=== PATIENT | female | born 1985 | race Caucasian/White ===

== ENCOUNTER 2019-10-03 06:00 | Inpatient (IN) | payer BC ==
[~2019-10-03 06:00] MED LIST: Lactated Ringers 1,000 ML IV SCH; Scopolamine 1.5 MG Transdermal Patch TOP ONE; Sodium Chloride 0.9% 10 ML Syringe FLUSH PRN; Tranexamic Acid 1,000 MG in Sodium Chloride 0.9% 100 ML IV PRN
[2019-10-03] MEDS ORDERED: ceFAZolin 2 GM in Premix Bag 1 BAG IV ONE (06:27)
[2019-10-03] MEDS ORDERED: Citric Acid/Sodium Citrate Solution 30 ML Cup PO ONE (06:27)
[2019-10-03] MEDS ORDERED: Oxytocin/Normal Saline 30 UNIT/500 ML BAG IV SCH (06:30)
[2019-10-03] MEDS ORDERED: diphenhydrAMINE 50 MG/ML SDV IVPUSH PRN (08:45)
[2019-10-03] MEDS ORDERED: ePHEDrine 50 MG/ML SDV IVPUSH PRN (08:45)
[2019-10-03] MEDS ORDERED: Acetaminophen 325 MG Tab PO PRN (08:45)
[2019-10-03] MEDS ORDERED: Carboprost Tromethamine 250 MCG/1 ML Amp IM PRN (08:45)
[2019-10-03] MEDS ORDERED: Methylergonovine 0.2 MG/1 ML Amp IM PRN (08:45)
[2019-10-03] MEDS ORDERED: Tranexamic Acid 1,000 MG in Sodium Chloride 0.9% 100 ML IV PRN (08:45)
[2019-10-03] MEDS ORDERED: Naloxone 2 MG/2 ML Syringe IVPUSH PRN (08:45)
[2019-10-03] MEDS ORDERED: Ondansetron 4 MG/2 ML SDV IVPUSH PRN (08:45)
[2019-10-03] MEDS ORDERED: Misoprostol 400 MCG (4 X 100 MCG TAB) RECTAL PRN (08:45)
[2019-10-03] MEDS ORDERED: fentaNYL 100 MCG/2 ML SDV IVPUSH PRN (09:02)
[2019-10-03] MEDS: Lactated Ringers 1,000 ML IV SCH ×3 (09:54→19:44)
[2019-10-03] MEDS ORDERED: Oxytocin/Normal Saline 30 UNIT/500 ML BAG IV ONE (10:07)
[2019-10-03] MEDS ORDERED: Lactated Ringers 1,000 ML IV ONE (10:08)
[2019-10-03] MEDS ORDERED: Dexamethasone 4 MG/ML SDV IV ONE (10:08)
[2019-10-03] MEDS ORDERED: Ketorolac 30 MG/ML SDV IVPUSH ONE (10:08)
[2019-10-03] MEDS ORDERED: Ondansetron 4 MG/2 ML SDV IV ONE (10:08)
[2019-10-03] MEDS ORDERED: Famotidine 20 MG/2 ML SDV IV ONE (10:08)
[2019-10-03] MEDS ORDERED: ePHEDrine 50 MG/ML SDV IV ONE (10:08)
[2019-10-03] MEDS: Simethicone 80 MG Tab.Chew PO SCH ×4 (11:42→20:42)
[2019-10-03] MEDS: Prenatal Multivitamin with Calcium/Folic Acid/Iron Tab PO SCH (11:42)
[2019-10-03] MEDS: Ketorolac 30 MG/ML SDV IVPUSH SCH ×2 (14:12→20:37)
[2019-10-03] MEDS: Acetaminophen/oxyCODONE 325-5 MG Tab PO PRN ×3 (15:41→23:29)
--- NOTE | 2019-10-03 15:52 | OR ---
DATE: 10/03/2019 PREOPERATIVE DIAGNOSES: 1. A 34-year-old, G4, P2-0-1-2, at 39 weeks' gestation. 2. Candidate for elective repeat section. 3. History of gestational hypertension with intermittent borderline readings, but no evidence of preeclampsia with this . 4. Rubella immune. 5. A positive blood type. 6. Group B streptococcus negative. POSTOPERATIVE DIAGNOSES: 1. A 34-year-old, 4, now para 3-0-1-3. 2. Elective repeat without complication, delivering a viable male infant at 8:04, on 10/03/2019. weight is 7 pounds 14 ounces/3575 g. 3. History of gestational hypertension with intermittent borderline readings, but no evidence of preeclampsia with this . 4. Rubella immune. 5. A positive blood type. 6. Group B streptococcus negative. PROCEDURE: Repeat elective low-transverse section. ESTIMATED BLOOD LOSS: 500 mL. FINDINGS: This delightful 34-year-old, G4, P2-0-1-2, presented at 39 weeks' gestation for her elective repeat section as scheduled. Nonstress test was reactive. She met with Anesthesia and precautions were taken to avoid nausea and reactions that she has had in the past. Please see their notes for details. DESCRIPTION OF PROCEDURE: IV was placed, and she received 2 g of Ancef preop antibiotics. Underwent spinal anesthesia with an excellent result. She was prepped and draped in the usual sterile manner once a time-out had been performed in my presence. A Pfannenstiel incision was made with a scalpel through her previous incision line. This was carried down through the subcutaneous tissue with electrocautery. The fascia was divided transversely. The fascial flaps were developed with sharp and blunt dissections. The rectus was identified and divided in the midline and the peritoneum identified and entered bluntly. Incision was opened until we had excellent visualization of the lower uterine segment. Large Jimbo retractor was placed without difficulty. The bladder was taken down with sharp and blunt dissection. The lower uterine incision, previously made, was found to be fairly thin. A stab incision was made into this and carried down to the level of the amniotic sac. This was extended with blunt dissection. The amniotic sac was entered and clear fluid was encountered. The vertex was elevated up into the incision. The baby was in a TODD presentation. Vertex was delivered and a nuchal cord x1 was noted. This was easily reduced. The baby delivered and had a spontaneous cry at . Baby was suctioned, dried, stimulated, and the cord doubly clamped and cut by me, and the baby was handed off to waiting nursery staff. Weight was later found to be 7 pounds 14 ounces/3575 g and time of was 8:04 a.m. Cord blood sample was obtained. A three-vessel cord was noted. The placenta was removed intact with remaining trailing membranes and later inspected and found to be complete and intact with a central cord insertion. The uterus was wiped clean and dry, and the uterine incision edges were grasped with José forceps. Uterus was closed with a running locking 0 Vicryl suture and had excellent hemostasis and baptism of normal anatomy. The incision was examined and found to be hemostatic. The large Jimbo retractor had been placed for use for visualization, and this was now removed. The gutters were examined and found to be dry. The uterus was back in its anatomical position. The incision was again examined and was hemostatic. Peritoneal layer was closed with a running 1 Vicryl suture. The fascial layer was closed with PDS loop running suture with excellent results. Subcutaneous tissue came together nicely, and the skin edges were brought together with vianca. There were no intraoperative complications. The uterus was firm. Estimated blood loss of 500 mL as noted. Urine continued to drain clear in the Deleon with a total of 60 mL during her surgery. Fluids were 200 mL of amniotic fluid, which was clear. Beginning time, 7:57. Uterine incision, 8:03. Time of , 8:04. Completion time of my surgery was 8:23. The patient was transferred to the recovery room in excellent condition with stable vital signs. All counts were correct. We will follow routine postop and orders. Addendum: APGARs 5 & 9 hmb MODL /[id number] CRISTI
[2019-10-03] MEDS: Docusate Sodium 100 MG Cap PO PRN (20:42)
[2019-10-03] MEDS ORDERED: CHECK TRDERM SCH (21:00)
[2019-10-04] MEDS: Ketorolac 30 MG/ML SDV IVPUSH SCH (02:26)
[2019-10-04] MEDS: Acetaminophen/oxyCODONE 325-5 MG Tab PO PRN ×5 (04:45→21:21)
[2019-10-04] MEDS: Simethicone 80 MG Tab.Chew PO SCH ×4 (08:48→21:47)
[2019-10-04] MEDS: Prenatal Multivitamin with Calcium/Folic Acid/Iron Tab PO SCH (08:48)
--- NOTE | 2019-10-04 10:27 | PCM.SN ---
- Free Text/Narrative Note: DOS: 10-04-2019 POD #1 doing very well s/p ERCS #3 felt a bit rough last night for a couple hours, but now feels very well. Anesthesia resolved. eating, ambulating. arcos is out and she has voided already nursing. flow as expected. looks well VS stable afebrile most recent: temp 98.1, P 73, BP 109/66 HEENT neg no resp distress HR reg abd soft fundus firm no edema labs: hgb 9.8 WBC 9.3 PLT 156 continue routine cares and orders. she is planning possible discharge tomorrow if able, so will recheck CBC in am all questions answered. family appears happy with plan and care today. alex
[2019-10-04] MEDS: Ibuprofen 800 MG Tab PO PRN ×2 (11:00→19:47)
[2019-10-04] MEDS: Docusate Sodium 100 MG Cap PO PRN (19:47)
[2019-10-05] MEDS: Acetaminophen/oxyCODONE 325-5 MG Tab PO PRN ×2 (01:21→04:53)
[2019-10-05] MEDS: Ibuprofen 800 MG Tab PO PRN (04:53)
[2019-10-05 07:50] VITALS: BP 126/77; PULSE 77
[2019-10-05] MEDS: Prenatal Multivitamin with Calcium/Folic Acid/Iron Tab PO SCH (10:26)
[2019-10-05] MEDS: Simethicone 80 MG Tab.Chew PO SCH (10:26)
--- NOTE | 2019-10-05 15:42 | DISCH ---
DISCHARGE DIAGNOSES: 1. A 34-year-old, 4, para 3-0-1-3. 2. 39 weeks' gestation. 3. Elective repeat section without complications. 4. A positive blood type. 5. Group B streptococcus negative. 6. Rubella immune. 7. History of gestational hypertension with no evidence of recurrence or preeclampsia. 8. Postoperative/ anemia, asymptomatic. 9. Viable male with weight of 3575 g/7 pounds 14 ounces, and score of 5 and 9 at one and five minutes respectively. 10. mother. FINDINGS: This delightful 34-year-old white female, 4, para 2-0-1-2, presented as scheduled at 39 weeks' gestation for elective repeat section. This was carried out without difficulty, delivering a viable male at 8:04 a.m. on 10/03/2019, with weight as noted above. The surgery was without complications. Please see her operative note and preop H and P for details. Her postop course has been uneventful. She is without difficulty. She has remained afebrile with stable vital signs. Her fundus is firm and her flow has been light. Her spinal anesthesia has completely resolved. She is ambulating without difficulty. Bowel and bladder function have returned. Her Deleon catheter was removed, and she is voiding without difficulty. She is eating without nausea or vomiting. She had a history of severe nausea and vomiting with previous anesthesia and measures were taken this time to avoid a recurrence, which were successful. Please see Anesthesia notes for details regarding that. Lab work showed admission hemoglobin of 12.7 with postop recheck of 9.8, discharge day of 10.5. Serial platelets 205, 156, and 175. White count on admit was 10.1 with rechecks of 9.3 and 8.2. Preeclampsia lab work was done on admit due to her history of gestational hypertension and the fact that she had not been feeling well and had some borderline blood pressure readings. Prior to surgery, however, all values were within normal limits and reassuring. The patient was discharged home on postop day #2 with early discharge per her request. Her incision is healing well with no signs of infection or dehiscence. She appears ready for discharge today, therefore, will be discharged home in good condition with routine discharge instructions. FOLLOWUP: Next week in the clinic with Dr. Moore, in my absence. DISCHARGE MEDICATIONS: Her medications will include a vitamin 1 daily, iron b.i.d., ibuprofen or Tylenol over the counter as needed, and stool softener p.r.n. A prescription for Percocet, #28 will be given, , half to one q.i.d. p.r.n. only for breakthrough pain. All questions were answered. The patient and were happy with care and plan for discharge today. [facility] /[id number]
== END 2019-10-05 10:25 | disposition home or self-care (01) | DRG 540 ==
LOC: DL.OB 06:00 → UNDOADMOB 06:17 → DL.OB 06:17 → OBSVTOIN 08:04
PROVIDERS: ADMIT Family Medicine; ATTEND Family Medicine
PROC: 10D00Z1 Extraction of Products of Conception, Low, Open Approach (ICD-10-PCS; principal; 2019-10-03)
DX: O34.211 Maternal care for low transverse scar from previous cesarean delivery (principal); O69.81X0 Labor and delivery complicated by cord around neck, without compression, not applicable or unspecified; O99.03 Anemia complicating the puerperium; D64.9 Anemia, unspecified; Z79.899 Other long term (current) drug therapy; Z3A.39 39 weeks gestation of pregnancy; Z37.0 Single live birth
CPT/HCPCS: 36415; 59025; 82565; 83615; 84450; 84460; 84520; 84550; 85025; 85027; 86850; 86900; 86901; 94010; A9270-GY; J0690; J1100; J1885; J2405; J2590; J3490; J7120